=== PATIENT | female | born 1980 | race Caucasian/White ===

== ENCOUNTER 2022-04-02 16:59 | Emergency (ER) | payer BC, SELFPAY ==
--- NOTE | ~2022-04-02 | XR_ITS ---
EXAMINATION: XR chest 1V portable DATE: 04/02/2022 18:38 INDICATION: Cough and flu. TECHNIQUE: frontal view of the chest was obtained. COMPARISON: None FINDINGS: The lungs are clear with no focal airspace opacities, pulmonary edema, pleural effusion or pneumothor ax. The cardiomediastinal silhouette is normal. Visualized bones and soft tissues are unremarkable. IMPRESSION: 1. No acute cardiopulmonary disease. Reviewed, dictated and finalized at location A. [employer]
[2022-04-02 17:14] VITALS: BP 132/84; PULSE 99; RESP 17; TEMP 37; O2SAT 100
[2022-04-02 17:50] LABS: Influenza A QL RT-PCR Negative (Negative); Influenza B QL RT-PCR Negative (Negative); RSV RNA, RT-PCR Negative (Negative); SARS-CoV-2 RNA PCR Negative
--- NOTE | 2022-04-02 18:29 | ED.GENADULT ---
HPI - General Adult General Chief complaint: Upper Respiratory Infection Stated complaint: upper resp infection, fevers, chest pain Time Seen by Provider: 04/02/22 18:03 History of Present Illness HPI narrative: 42-year-old female presents with cough productive of yellow and green sputum x4 days. She has also had allergic shiners. Subjective fever that was probably 101 or 102 . Patient was afebrile in triage today. She states that she had what she thought was the flu on and her symptoms and mostly resolved until 4 days prior to arrival when they returned. Related Data Allergies Allergy/AdvReac Type Severity Reaction Status Date / Time No Known Allergies Allergy Verified 04/02/22 17:00 Review of Systems Review of Systems: CONSTITUTIONAL: Denies fever, chills, or sweats. EYES: Denies visual changes, redness, or discharge. ENT: Denies rhinorrhea, congestion, sore throat, or otalgia. CARDIOVASCULAR: Denies chest pain, palpitations, or edema. RESPIRATORY: Denies cough or dyspnea. GASTROINTESTINAL: Denies abdominal pain, nausea, vomiting, or diarrhea. GENITOURINARY: Denies dysuria or hematuria. SKIN: Denies rash or itching. MUSCULOSKELETAL: Denies back pain, joint pain, or myalgia. NEUROLOGIC: Denies headache, numbness, or weakness. PSYCHIATRIC: Denies anxiety or depression. Exam Narrative: GENERAL: Well-appearing, well-nourished, and in no acute distress. HEAD: Normocephalic, atraumatic. EYES: PERRLA and EOMI. ENT: Nares clear, no rhinorrhea or epistaxis. Mucous membranes moist. NECK: Supple. CHEST: Clear to auscultation. No respiratory distress. HEART: Regular rate and rhythm. No murmur heard. Normal peripheral pulses. ABDOMEN: Soft, nontender, nondistended, normal active bowel sounds. EXTREMITIES: Normal range of motion. No edema. SKIN: Warm, dry, no rash. NEURO: No focal deficits. Alert and oriented x3. PSYCH: Normal mood and affect. Course Vital Signs Vital signs: Vital Signs Temperature 98.6 F 04/02/22 17:14 Pulse Rate 99 04/02/22 17:14 Respiratory Rate 17 04/02/22 17:14 Blood Pressure 132/84 04/02/22 17:14 Pulse Oximetry 100 04/02/22 17:14 Oxygen Delivery Room Air 04/02/22 17:14 Temperature 98.6 F 04/02/22 17:14 Pulse Rate 99 04/02/22 17:14 Respiratory Rate 17 04/02/22 17:14 Blood Pressure 132/84 04/02/22 17:14 Pulse Oximetry 98 04/02/22 18:54 Oxygen Delivery Room Air 04/02/22 18:54 Medical Decision Making MDM Narrative Medical decision making narrative: Patient is afebrile and clinically well-appearing. Lungs are clear in all mast. We will get a chest x-ray and give a dose of dexamethasone. Less evidence of pneumonia on chest x-ray this seems to be an upper respiratory infection likely viral in nature. Chest x-ray with no acute cardiopulmonary abnormalities. Vital Signs Vital Signs: Vital Signs Temperature 98.6 F 04/02/22 17:14 Pulse Rate 99 04/02/22 17:14 Respiratory Rate 17 04/02/22 17:14 Blood Pressure 132/84 04/02/22 17:14 Pulse Oximetry 100 04/02/22 17:14 Oxygen Delivery Room Air 04/02/22 17:14 Temperature 98.6 F 04/02/22 17:14 Pulse Rate 99 04/02/22 17:14 Respiratory Rate 17 04/02/22 17:14 Blood Pressure 132/84 04/02/22 17:14 Pulse Oximetry 98 04/02/22 18:54 Oxygen Delivery Room Air 04/02/22 18:54 Lab Data Labs: Lab Results 04/02/22 Range/Units 17:10 Influenza A (RT-PCR) Negative (Negative) Influenza B (RT-PCR) Negative (Negative) RSV (RT-PCR) Negative (Negative) SARS-CoV-2 RNA (RT-PCR) Negative Discharge Plan Discharge Clinical Impression: Upper respiratory infection Patient Disposition: Home, Self-Care Condition: Stable Instructions: Antibiotic Form, Viral Syndrome (ED) Additional Instructions: Please use your inhaler as needed. Return to the ER if your symptoms worsen or if you have any concerns about your health. Please follo
[2022-04-02] MEDS: DEXAMETHASONE 2 MG TABLET 10 MG PO (18:52)
[2022-04-02 18:54] VITALS: O2SAT 98
== END 2022-04-02 19:27 | disposition home or self-care (01) ==
PROVIDERS: Emergency Medicine; Emergency Provider Emergency Medicine; PCP Family Medicine
DX: J06.9 Acute upper respiratory infection, unspecified (principal); Z20.822 Contact with and (suspected) exposure to COVID-19
CPT/HCPCS: 71045; 87637; 99283; J8540